=== PATIENT | female | born 1995 | race Caucasian/White ===

== ENCOUNTER 2016-10-23 19:37 | Emergency (ER) | payer SELFPAY ==
[2016-10-23 20:11] VITALS: TEMP 97.2
[2016-10-23] MEDS ORDERED: FLUCONAZOLE 100 MG TAB PO ONE (20:40)
[2016-10-23] MEDS ORDERED: CETIRIZINE HCL 10 MG TAB PO ONE (20:41)
--- NOTE | 2016-10-23 20:44 | ED.PDOC ---
History of Present Illness - General Chief Complaint: Skin/Abrasion/Tear Time Seen by Provider: 10/23/16 20:38 Source: patient Exam Limitations: no limitations - History of Present Illness Initial Comments: the patient is a 21-year-old female presenting to the emergency room secondary to skin lesions. She has had a large erythematous lesion to her left antecubital fossa for the last 7 months. Additionally over the last 2-3 months she has developed several coin-sized lesions in various places. One is on the breast. One is on the medial thigh. A couple or on the abdomen. They're all pruritic. Most of the smaller ones look significantly lax psoriasis. She has attempted multiple antifungal's on the original lesion without any relief. She has not been taking antihistamines or steroids. No oral lesions. There've been no blisters. Timing/Duration: constant Severity: moderate Improving Factors: nothing Worsening Factors: nothing Associated Symptoms: denies symptoms Allergies/Adverse Reactions: Allergies Meperidine [From Demerol HCl] Allergy (Verified 09/03/16 21:59) bandaid Allergy (Mild, Uncoded 02/07/16 21:19) Home Medications: Ambulatory Orders predniSONE [Prednisone] 20 mg PO DAILY #5 tab 10/23/16 Review of Systems - Review of Systems Constitutional: States: no symptoms reported EENTM: States: no symptoms reported Respiratory: States: no symptoms reported Cardiology: States: no symptoms reported Gastrointestinal/Abdominal: States: no symptoms reported Genitourinary: States: no symptoms reported Musculoskeletal: States: no symptoms reported Skin: States: see HPI Neurological: States: no symptoms reported All other Systems: No Change from Baseline Past Medical History (General) - Patient Medical History Hx Seizures: No Hx Stroke: No Hx Dementia: No Hx Asthma: No Hx of COPD: No Hx Cardiac Disorders: No Hx Congestive Heart Failure: No Hx Pacemaker: No Hx Hypertension: No Hx Thyroid Disease: No Hx Diabetes: No Hx Gastroesophageal Reflux: Yes Hx Renal Disease: No Hx Cancer: No Hx of HIV: No Hx Hepatitis C: No Hx MRSA: No Surgical History: other - Vaccination History Hx Tetanus, Diphtheria Vaccination: Yes Hx Influenza Vaccination: Yes Hx Pneumococcal Vaccination: No Immunizations Up to Date: Yes - Social History Hx Tobacco Use: Yes Hx Chewing Tobacco Use: No Hx Alcohol Use: Yes Hx Substance Use: No Hx Substance Use Treatment: No Hx Depression: No Hx Physical Abuse: No Hx Emotional Abuse: No Hx Suspected Abuse: No - Female History Patient is a Female of Child Bearing Age (10 -59 yrs old): Yes Hx Last Menstrual Period: 04/04/15 Patient : No Expected Date of Delivery:: 06/14/16 Hx Gestational Age: 36 Family Medical History - Family History Mother Family History: No Known Living Status: Still Living Hx Family Asthma: Yes Hx Family Congestive Heart Failure: No Hx Family Hypertension: Yes Hx Family Stroke: No Hx Cardiac Disease: Yes Hx Family Diabetes: No Hx Family Cancer: No Physical Exam - Physical Exam General Appearance: Alert, Comfortable, No apparent distress Eye Exam: bilateral normal Ears, Nose, Throat: normal ENT inspection, normal pharynx Neck: non-tender, full range of motion, supple Respiratory: chest non-tender, lungs clear, normal breath sounds, no respiratory distress, no accessory muscle use Cardiovascular/Chest: normal peripheral pulses, no edema Peripheral Pulses: radial,right: 2+, radial,left: 2+ Rectal Exam: deferred Back Exam: normal inspection Extremity: normal range of motion, non-tender, no pedal edema, no calf tenderness, normal capillary refill Neurologic: alert, normal mood/affect, oriented x 3 Skin Exam: rash - see history of present illness Comments: Vital Signs - 24 hr 10/23/16 20:07 Temperature 97.2 F L Pulse Rate [ 96 H Right Radial] Respiratory 18 Rate Blood Pressure 130/85 [Right Arm] O2 Sat by Pulse 95 Oximetry Progress - Progress Progress: 10/23/16 20:44 the patient is a 21-year-old female presenting with multiple skin lesions, some of which have been present for 7 months. She has tried multiple antifungals without relief. While this may be a fungal problem this seems unlikely at this point simply due to the duration of symptoms. She was given 1 tablet of Diflucan. More likely this seems like a form of psoriasis versus atopic dermatitis. The patient will be placed on prednisone daily 20 mg for 5 days. I want her to take cetirizine 10 mg daily as well for one month. She needs to use a hydrating soap such as Dove soap at night and she can also use topical Cetaphil cream twice daily to help reduce dry skin and therefore likely reduce lesion formation. She needs to keep well-hydrated. Return to the emergency room for any acute worsening. Take the prednisone in the morning. Take the cetirizine at night. Departure - Departure Clinical Impression: Atopic dermatitis Qualifiers: Atopic dermatitis type: flexural Qualifier Code: (L20.89) Other atopic dermatitis Disposition: Discharge to Home or Self Care Condition: Fair Departure Forms: ED Discharge - Pt. Copy, Patient Portal Self Enrollment Instructions: DI for Atopic Dermatitis - Adult Diet: regular diet Activity: increase activity as tolerated Referrals: Loy Soto MD [Primary Care Provider] - 1-2 Weeks Prescriptions: predniSONE [Prednisone] 20 mg PO DAILY #5 tab Home Medications: Ambulatory Orders predniSONE [Prednisone] 20 mg PO DAILY #5 tab 10/23/16 Additional Instructions: the patient is a 21-year-old female presenting with multiple skin lesions, some of which have been present for 7 months. She has tried multiple antifungals without relief. While this may be a fungal problem this seems unlikely at this point simply due to the duration of symptoms. She was given 1 tablet of Diflucan. More likely this seems like a form of psoriasis versus atopic dermatitis. The patient will be placed on prednisone daily 20 mg for 5 days. I want her to take cetirizine 10 mg daily as well for one month. She needs to use a hydrating soap such as Dove soap at night and she can also use topical Cetaphil cream twice daily to help reduce dry skin and therefore likely reduce lesion formation. She needs to keep well-hydrated. Return to the emergency room for any acute worsening. Take the prednisone in the morning. Take the cetirizine at night.
[2016-10-23 21:08] VITALS: BP 131/77; O2SAT 98
== END 2016-10-23 21:08 | disposition home or self-care (01) ==
LOC: ER 19:37
DX: L20.89 Other atopic dermatitis (principal); Z87.891 Personal history of nicotine dependence

== ENCOUNTER 2017-05-09 19:27 | Emergency (ER) | payer SELFPAY ==
[2017-05-09 19:48] VITALS: BP 157/81; TEMP 97.8; O2SAT 98
--- NOTE | 2017-05-09 19:51 | ED.PDOC ---
History of Present Illness - General Chief Complaint: ENT Problem Stated Complaint: ear pain Time Seen by Provider: 05/09/17 19:43 Source: patient Exam Limitations: no limitations - History of Present Illness Initial Comments: Patient has had a runny nose and sinus pain for one week. She also has an intermittent cough occasionally productive of clear sputum. For the past three days, her right ear has been hurting. It is throbbing in nature. She denies sore throat. Sinus pain is frontal and maxillary. No sick contacts. No other complaints. Timing/Duration: 1 week Severity: moderate Improving Factors: nothing Worsening Factors: nothing Associated Symptoms: other - see HPI Allergies/Adverse Reactions: Allergies Meperidine [From Demerol HCl] Allergy (Verified 09/03/16 21:59) bandaid Allergy (Mild, Uncoded 02/07/16 21:19) Home Medications: Ambulatory Orders predniSONE [Prednisone] 20 mg PO DAILY #5 tab 10/23/16 Amoxicillin & Pot Clavulanate [Augmentin] 875 mg PO BID #19 tab 05/09/17 Review of Systems - Review of Systems Constitutional: States: see HPI EENTM: States: see HPI Respiratory: States: see HPI Cardiology: States: no symptoms reported Gastrointestinal/Abdominal: States: no symptoms reported Genitourinary: States: no symptoms reported Musculoskeletal: States: no symptoms reported Skin: States: no symptoms reported Neurological: States: no symptoms reported Endocrine: States: no symptoms reported Hematologic/Lymphatic: States: no symptoms reported Past Medical History (General) - Patient Medical History Hx Seizures: No Hx Stroke: No Hx Dementia: No Hx Asthma: No Hx of COPD: No Hx Cardiac Disorders: No Hx Congestive Heart Failure: No Hx Pacemaker: No Hx Hypertension: No Hx Thyroid Disease: No Hx Diabetes: No Hx Gastroesophageal Reflux: Yes Hx Renal Disease: No Hx Cancer: No Hx of HIV: No Hx Hepatitis C: No Hx MRSA: No - Vaccination History Hx Tetanus, Diphtheria Vaccination: Yes Hx Influenza Vaccination: No Hx Pneumococcal Vaccination: No Immunizations Up to Date: Yes - Social History Hx Tobacco Use: Yes Hx Chewing Tobacco Use: No Hx Alcohol Use: No Hx Substance Use: No Hx Substance Use Treatment: No Hx Depression: No Hx Physical Abuse: No Hx Emotional Abuse: No Hx Suspected Abuse: No - Female History Patient is a Female of Child Bearing Age (10 -59 yrs old): Yes Hx Last Menstrual Period: 04/04/15 Patient : No Expected Date of Delivery:: 06/14/16 Hx Gestational Age: 36 Family Medical History - Family History Mother Family History: No Known Living Status: Still Living Hx Family Asthma: Yes Hx Family Congestive Heart Failure: No Hx Family Hypertension: Yes Hx Family Stroke: No Hx Cardiac Disease: Yes Hx Family Diabetes: No Hx Family Cancer: No Physical Exam - Physical Exam General Appearance: Alert Eye Exam: bilateral normal Ears, Nose, Throat: other - Right TM is bulging with serous fluid, left TM is clear, clear nasal exudate, non-injected sclera, OP clear, no LAD, frontal and maxillary sinuses are mildly TTP Neck: non-tender, full range of motion, supple, normal inspection Respiratory: other - Exp wheezing in right upper and middle lung boo. Cardiovascular/Chest: regular rate, rhythm Gastrointestinal/Abdominal: normal bowel sounds, non tender, soft Skin Exam: normal color Lymphatic: no adenopathy Departure - Departure Clinical Impression: Acute sinusitis Disposition: Discharge to Home or Self Care Condition: Good Departure Forms: ED Discharge - Pt. Copy, Patient Portal Self Enrollment Diet: resume usual diet Activity: increase activity as tolerated Referrals: Loy Soto MD [Primary Care Provider] - 1-2 Weeks Prescriptions: Amoxicillin & Pot Clavulanate [Augmentin] 875 mg PO BID #19 tab Home Medications: Ambulatory Orders predniSONE [Prednisone] 20 mg PO DAILY #5 tab 10/23/16 Amoxicillin & Pot Clavulanate [Augmentin] 875 mg PO BID #19 tab 05/09/17 Additional Instructions: Take medication as prescribed. Over the counter cough and cold medications as directed. Increase fluids. Return to your regular doctor if symptoms have not resolved in two weeks.
[2017-05-09] MEDS ORDERED: AMOXICILLIN & POT CLAVULANATE 875 MG TAB PO ONE (19:55)
== END 2017-05-09 20:05 | disposition home or self-care (01) ==
LOC: ER 19:27
DX: J01.90 Acute sinusitis, unspecified (principal); K21.9 Gastro-esophageal reflux disease without esophagitis; Z88.8 Allergy status to other drugs, medicaments and biological substances

== ENCOUNTER 2018-02-20 00:38 | Emergency (ER) | payer SELFPAY ==
[2018-02-20] MEDS ORDERED: traMADol HCL 50 MG TAB PO ONE (01:09)
[2018-02-20] MEDS ORDERED: CEPHALEXIN MONOHYDRATE 500 MG CAP PO ONE (01:09)
--- NOTE | 2018-02-20 01:12 | ED.PDOC ---
History of Present Illness - General Time Seen by Provider: 02/20/18 01:09 Source: patient Exam Limitations: no limitations - History of Present Illness Initial Comments: the patient is 22 yo cf presenting due to dental pain of right upper posterior molar for 4 yrs worse over the last 2 days. no fever or maxillary sinus pain. no abscesss obvious. Timing/Duration: unsure Severity: moderate Improving Factors: nothing Worsening Factors: nothing Associated Symptoms: denies symptoms Allergies/Adverse Reactions: Allergies Meperidine [From Demerol HCl] Allergy (Verified 09/03/16 21:59) bandaid Allergy (Mild, Uncoded 02/07/16 21:19) Home Medications: Ambulatory Orders predniSONE [Prednisone] 20 mg PO DAILY #5 tab 10/23/16 Amoxicillin & Pot Clavulanate [Augmentin] 875 mg PO BID #19 tab 05/09/17 Cephalexin Monohydrate [Keflex] 500 mg PO Q8H #30 cap 02/20/18 Tramadol HCl [Ultram] 50 mg PO Q8HR #30 tab 02/20/18 Review of Systems - Review of Systems Constitutional: States: no symptoms reported EENTM: States: see HPI Respiratory: States: no symptoms reported Cardiology: States: no symptoms reported Gastrointestinal/Abdominal: States: no symptoms reported Genitourinary: States: no symptoms reported Musculoskeletal: States: no symptoms reported Skin: States: no symptoms reported Neurological: States: no symptoms reported Endocrine: States: no symptoms reported All other Systems: No Change from Baseline Past Medical History (General) - Patient Medical History Hx Seizures: No Hx Stroke: No Hx Dementia: No Hx Asthma: No Hx of COPD: No Hx Cardiac Disorders: No Hx Congestive Heart Failure: No Hx Pacemaker: No Hx Hypertension: No Hx Thyroid Disease: No Hx Diabetes: No Hx Gastroesophageal Reflux: Yes Hx Renal Disease: No Hx Cancer: No Hx of HIV: No Hx Hepatitis C: No Hx MRSA: No - Vaccination History Hx Tetanus, Diphtheria Vaccination: Yes Hx Influenza Vaccination: No Hx Pneumococcal Vaccination: No - Social History Hx Tobacco Use: Yes Hx Chewing Tobacco Use: No Hx Alcohol Use: No Hx Substance Use: No Hx Substance Use Treatment: No Hx Depression: No Hx Physical Abuse: No Hx Emotional Abuse: No Hx Suspected Abuse: No - Female History Hx Last Menstrual Period: 04/04/15 Patient : No Expected Date of Delivery:: 06/14/16 Hx Gestational Age: 36 Family Medical History - Family History Mother Family History: No Known Living Status: Still Living Hx Family Asthma: Yes Hx Family Congestive Heart Failure: No Hx Family Hypertension: Yes Hx Family Stroke: No Hx Cardiac Disease: Yes Hx Family Diabetes: No Hx Family Cancer: No Physical Exam - Physical Exam General Appearance: Alert, Comfortable, No apparent distress Eye Exam: bilateral normal Ears, Nose, Throat: hearing grossly normal, other - see hpi Neck: full range of motion, supple Respiratory: no respiratory distress, no accessory muscle use Cardiovascular/Chest: normal peripheral pulses, no edema Peripheral Pulses: radial,right: 2+, radial,left: 2+ Rectal Exam: deferred Extremity: normal range of motion, no pedal edema, normal capillary refill 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 placing on keflex and tramadol. can use ibuprofen as needed and clove oil once as well. needs to see a dentist. er warnings. Departure - Departure Clinical Impression: Pain due to dental caries Disposition: Discharge to Home or Self Care Condition: Fair Instructions: DI for Dental Pain Diet: regular diet Activity: increase activity as tolerated Prescriptions: Tramadol HCl [Ultram] 50 mg PO Q8HR #30 tab Cephalexin Monohydrate [Keflex] 500 mg PO Q8H #30 cap Home Medications: Ambulatory Orders predniSONE [Prednisone] 20 mg PO DAILY #5 tab 10/23/16 Amoxicillin & Pot Clavulanate [Augmentin] 875 mg PO BID #19 tab 05/09/17 Cephalexin Monohydrate [Keflex] 500 mg PO Q8H #30 cap 02/20/18 Tramadol HCl [Ultram] 50 mg PO Q8HR #30 tab 02/20/18 Additional Instructions: patient is a 22 year old female presenting with dental pain from a long fractured tooth with likely superimposed infection. placing on keflex and tramadol. can use ibuprofen as needed and clove oil once as well. needs to see a dentist. er warnings.
[2018-02-20 01:41] VITALS: BP 128/76; TEMP 98; O2SAT 99
== END 2018-02-20 01:40 | disposition home or self-care (01) ==
LOC: ER 00:38
DX: K02.9 Dental caries, unspecified (principal)

== ENCOUNTER 2018-04-02 21:09 | Emergency (ER) | payer SELFPAY ==
[2018-04-02 21:22] VITALS: BP 157/95; TEMP 98.3; O2SAT 100
--- NOTE | 2018-04-02 21:36 | ED.PDOC ---
History of Present Illness - General Chief Complaint: Dental/Mouth Stated Complaint: dental, facial pain Time Seen by Provider: 04/02/18 21:26 Source: patient Exam Limitations: no limitations - History of Present Illness Initial Comments: Rosio Valenzuela 22 y/o female came to ER with right upper molar dental pain for the last 3 days;No fever; no drooling;no dysphagia;no facial swelling/pain Timing/Duration: gradual, other - see hpi Severity: moderate EENT Location: dental Prearrival Treatment: no prearrival treatment Presenting Symptoms: toothache Improving Factors: rest Worsening Factors: eating Associated Symptoms: denies symptoms Allergies/Adverse Reactions: Allergies Meperidine [From Demerol HCl] Allergy (Verified 09/03/16 21:59) bandaid Allergy (Mild, Uncoded 02/07/16 21:19) Home Medications: Ambulatory Orders predniSONE [Prednisone] 20 mg PO DAILY #5 tab 10/23/16 Amoxicillin & Pot Clavulanate [Augmentin] 875 mg PO BID #19 tab 05/09/17 Cephalexin Monohydrate [Keflex] 500 mg PO Q8H #30 cap 02/20/18 Tramadol HCl [Ultram] 50 mg PO Q8HR #30 tab 02/20/18 Clindamycin HCl 150 mg PO TID 10 Days #30 cap 04/02/18 Tramadol HCl 50 mg PO TID PRN #10 tab 04/02/18 Review of Systems - Review of Systems Constitutional: States: no symptoms reported EENTM: States: see HPI Respiratory: States: no symptoms reported Cardiology: States: no symptoms reported Gastrointestinal/Abdominal: States: no symptoms reported All other Systems: Reviewed and Negative, No Change from Baseline Past Medical History (General) - Patient Medical History Hx Seizures: No Hx Stroke: No Hx Dementia: No Hx Asthma: No Hx of COPD: No Hx Cardiac Disorders: No Hx Congestive Heart Failure: No Hx Pacemaker: No Hx Hypertension: No Hx Thyroid Disease: No Hx Diabetes: No Hx Gastroesophageal Reflux: Yes Hx Renal Disease: No Hx Cancer: No Hx of HIV: No Hx Hepatitis C: No Hx MRSA: No Surgical History: other - tubal ligation - Vaccination History Hx Tetanus, Diphtheria Vaccination: Yes Hx Influenza Vaccination: No Hx Pneumococcal Vaccination: No - Social History Hx Tobacco Use: Yes Hx Chewing Tobacco Use: No Hx Alcohol Use: No Hx Substance Use: No Hx Substance Use Treatment: No Hx Depression: No Hx Physical Abuse: No Hx Emotional Abuse: No Hx Suspected Abuse: No - Female History Hx Last Menstrual Period: 03/05/18 Patient : No Family Medical History - Family History Mother Family History: No Known Living Status: Still Living Hx Family Asthma: Yes Hx Family Congestive Heart Failure: No Hx Family Hypertension: Yes Hx Family Stroke: No Hx Cardiac Disease: Yes Hx Family Diabetes: No Hx Family Cancer: No Physical Exam - Physical Exam General Appearance: Alert, No apparent distress Eye Exam: bilateral normal Ear Exam: bilateral ear: auricle normal, canal normal, TM normal Nasal Exam: normal inspection Throat Exam: pharynx normal, other - multiple eroded teeth motly upper molars with localized gum swelling Neck: non-tender, full range of motion, supple, normal inspection, trachea midline Cardiovascular/Respiratory: regular rate, rhythm, no M/R/G, normal peripheral pulses, normal breath sounds Abdominal Exam: non-tender, no organomegaly Neurologic: alert, oriented x 3 Skin Exam: normal color, warm/dry Progress - Progress Progress: 04/02/18 21:41 Vital Signs - 8 hr 04/02/18 21:21 Temperature 98.3 F Pulse Rate [ 56 L monitor] Respiratory 18 Rate Blood Pressure 157/95 [Left Arm] O2 Sat by Pulse 100 Oximetry Departure - Departure Clinical Impression: Dental caries Time of Disposition: 21:43 Disposition: Discharge to Home or Self Care Condition: Good Departure Forms: ED Discharge - Pt. Copy, Patient Portal Self Enrollment Instructions: DI for Dental Pain, Tooth Decay, Adult Diet: other - SOFT DIET ONLY UNTIL BETTER Prescriptions: Clindamycin HCl 150 mg PO TID 10 Days #30 cap Tramadol HCl 50 mg PO TID PRN #10 tab PRN Reason: Pain Home Medications: Ambulatory Orders predniSONE [Prednisone] 20 mg PO DAILY #5 tab 10/23/16 Amoxicillin & Pot Clavulanate [Augmentin] 875 mg PO BID #19 tab 05/09/17 Cephalexin Monohydrate [Keflex] 500 mg PO Q8H #30 cap 02/20/18 Tramadol HCl [Ultram] 50 mg PO Q8HR #30 tab 02/20/18 Clindamycin HCl 150 mg PO TID 10 Days #30 cap 04/02/18 Tramadol HCl 50 mg PO TID PRN #10 tab 04/02/18 Additional Instructions: NEED TO MAKE APPOINTMENT WITH DENTIST NIALL- [facility]-[address] [place] [address] phone # [phone] OR/Dentist of choice
[2018-04-02] MEDS ORDERED: CLINDAMYCIN HCL CAP 150 MG CAP PO ONE (21:41)
[2018-04-02] MEDS ORDERED: traMADol HCL 50 MG (ER DISP) # 6 TABS PO ONE (21:42)
[2018-04-02] MEDS ORDERED: CLINDAMYCIN PHOSPHATE 150 MG/ML VIAL IM ONE (21:42)
== END 2018-04-02 22:01 | disposition home or self-care (01) ==
LOC: ER 21:09
DX: K02.9 Dental caries, unspecified (principal); K21.9 Gastro-esophageal reflux disease without esophagitis; Z87.891 Personal history of nicotine dependence

== ENCOUNTER 2018-12-29 07:47 | Emergency (ER) | payer OTHER, SELFPAY ==
[2018-12-29] MEDS ORDERED: levoFLOXacin 500 MG TAB PO ONE (08:05)
--- NOTE | 2018-12-29 08:06 | ED.PDOC ---
History of Present Illness - General Chief Complaint: ENT Problem Time Seen by Provider: 12/29/18 08:03 Source: patient Exam Limitations: no limitations - History of Present Illness Initial Comments: the patient is a 23-year-old female presenting with an acute right otitis media. She does have a bulging tympanic membrane and there are some bullae on the membrane. The tympanic membrane is dark red and opaque. Left is normal. She has recently had a respiratory tract infection. Patient is pleasant and cooperative and in no acute distress. Timing/Duration: 24 hours Severity: moderate Improving Factors: nothing Worsening Factors: nothing Associated Symptoms: cough, malaise Allergies/Adverse Reactions: Allergies Meperidine [From Demerol HCl] Allergy (Verified 09/03/16 21:59) bandaid Allergy (Mild, Uncoded 02/07/16 21:19) Home Medications: Ambulatory Orders levoFLOXacin [Levaquin] 500 mg PO DAILY #6 tab 12/29/18 Review of Systems - Review of Systems Constitutional: States: malaise EENTM: States: ear pain, nose congestion, throat pain Respiratory: States: cough Cardiology: States: no symptoms reported Gastrointestinal/Abdominal: States: no symptoms reported Genitourinary: States: no symptoms reported Musculoskeletal: States: no symptoms reported Skin: States: no symptoms reported Neurological: States: no symptoms reported Endocrine: States: no symptoms reported All other Systems: No Change from Baseline Past Medical History (General) - Patient Medical History Hx Seizures: No Hx Stroke: No Hx Dementia: No Hx Asthma: No Hx of COPD: No Hx Cardiac Disorders: No Hx Congestive Heart Failure: No Hx Pacemaker: No Hx Hypertension: No Hx Thyroid Disease: No Hx Diabetes: No Hx Gastroesophageal Reflux: Yes Hx Renal Disease: No Hx Cancer: No Hx of HIV: No Hx Hepatitis C: No Hx MRSA: No - Vaccination History Hx Tetanus, Diphtheria Vaccination: Yes Hx Influenza Vaccination: No Hx Pneumococcal Vaccination: No - Social History Hx Tobacco Use: Yes Hx Chewing Tobacco Use: No Hx Alcohol Use: No Hx Substance Use: No Hx Substance Use Treatment: No Hx Depression: No Hx Physical Abuse: No Hx Emotional Abuse: No Hx Suspected Abuse: No - Female History Hx Last Menstrual Period: 03/05/18 Patient : No Expected Date of Delivery:: 06/14/16 Hx Gestational Age: 36 Family Medical History - Family History Mother Family History: No Known Living Status: Still Living Hx Family Asthma: Yes Hx Family Congestive Heart Failure: No Hx Family Hypertension: Yes Hx Family Stroke: No Hx Cardiac Disease: Yes Hx Family Diabetes: No Hx Family Cancer: No Physical Exam - Physical Exam General Appearance: Alert, Comfortable, No apparent distress Eye Exam: bilateral normal Ears, Nose, Throat: abnormal TM (R), nasal congestion Neck: full range of motion, supple Respiratory: no respiratory distress, no accessory muscle use Cardiovascular/Chest: normal peripheral pulses, no edema Peripheral Pulses: radial,right: 2+, radial,left: 2+ Rectal Exam: deferred 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 She'll be placed on Levaquin for 7 days. She is receiving her first dose now. She can additionally take Motrin or Aleve as needed every 8-12 hours to help reduce discomfort. She needs to keep herself well-hydrated. ER warnings were given. Departure - Departure Clinical Impression: Otitis media Qualifiers: Otitis media type: suppurative Chronicity: acute Laterality: right Recurrence: non-recurrent Spontaneous tympanic membrane rupture: without spontaneous rupture Qualified Code(s): H66.001 - Acute suppurative otitis media without spontaneous rupture of ear drum, right ear Disposition: Discharge to Home or Self Care Condition: Fair Departure Forms: ED Discharge - Pt. Copy, Patient Portal Self Enrollment Diet: regular diet Activity: increase activity as tolerated Prescriptions: levoFLOXacin [Levaquin] 500 mg PO DAILY #6 tab Home Medications: Ambulatory Orders levoFLOXacin [Levaquin] 500 mg PO DAILY #6 tab 12/29/18 Additional Instructions: the patient a 23-year-old female presenting to the emergency room with a right acute otitis media. She'll be placed on Levaquin for 7 days. She is receiving her first dose now. She can additionally take Motrin or Aleve as needed every 8-12 hours to help reduce discomfort. She needs to keep herself well-hydrated. ER warnings were given.
[2018-12-29 08:14] VITALS: TEMP 97.8
[2018-12-29 08:17] VITALS: BP 127/93; O2SAT 97
== END 2018-12-29 08:17 | disposition home or self-care (01) ==
LOC: ER 07:47
DX: H66.001 Acute suppurative otitis media without spontaneous rupture of ear drum, right ear (principal); K21.9 Gastro-esophageal reflux disease without esophagitis; Z87.891 Personal history of nicotine dependence; Z88.8 Allergy status to other drugs, medicaments and biological substances

== ENCOUNTER 2019-03-30 09:11 | Emergency (ER) | payer OTHER ==
--- NOTE | 2019-03-30 09:37 | ED.PDOC ---
History of Present Illness - General Chief Complaint: Headache Stated Complaint: sudden RUIZ and nausea Time Seen by Provider: 03/30/19 09:30 Source: RN notes reviewed, EMS notes reviewed Exam Limitations: no limitations Additional Information: 23 YEAR OLD HERE FOR HEADACHE SUDDEN ONSET AT WORK THIS MORNING AFTER SHE OUT IN THE [place]IGHT PAIN IS SHARP AND OVER FRONTAL SIDE ASSOCIATED WITH NAUSEA SHE HAS NO HISTORY OF CHRONIC HEADACHES SHE SLEPT GOOD LAST NIGHT AND HAS NO FEVER CHILLS NO NAUSEA OR VOMITING - History of Present Illness Timing/Duration: 1/2 hour Severity: moderate Improving Factors: nothing Worsening Factors: nothing Associated Symptoms: denies symptoms Allergies/Adverse Reactions: Allergies Meperidine [From Demerol HCl] Allergy (Verified 09/03/16 21:59) bandaid Allergy (Mild, Uncoded 02/07/16 21:19) Review of Systems - Review of Systems Constitutional: States: no symptoms reported EENTM: States: no symptoms reported Respiratory: States: no symptoms reported Cardiology: States: no symptoms reported Gastrointestinal/Abdominal: States: no symptoms reported Genitourinary: States: no symptoms reported Musculoskeletal: States: no symptoms reported Skin: States: no symptoms reported Neurological: States: no symptoms reported Endocrine: States: no symptoms reported Hematologic/Lymphatic: States: no symptoms reported Past Medical History (General) - Patient Medical History Hx Seizures: No Hx Stroke: No Hx Dementia: No Hx Asthma: No Hx of COPD: No Hx Cardiac Disorders: No Hx Congestive Heart Failure: No Hx Pacemaker: No Hx Hypertension: No Hx Thyroid Disease: No Hx Diabetes: No Hx Gastroesophageal Reflux: Yes Hx Renal Disease: No Hx Cancer: No Hx of HIV: No Hx Hepatitis C: No Hx MRSA: No Surgical History: other - Vaccination History Hx Tetanus, Diphtheria Vaccination: Yes Hx Influenza Vaccination: No Hx Pneumococcal Vaccination: No - Social History Hx Tobacco Use: Yes Hx Chewing Tobacco Use: No Hx Alcohol Use: No Hx Substance Use: No Hx Substance Use Treatment: No Hx Depression: No Hx Physical Abuse: No Hx Emotional Abuse: No Hx Suspected Abuse: No - Female History Hx Last Menstrual Period: 03/05/18 Patient : No Expected Date of Delivery:: 06/14/16 Hx Gestational Age: 36 Family Medical History - Family History Mother Family History: No Known Living Status: Still Living Hx Family Asthma: Yes Hx Family Congestive Heart Failure: No Hx Family Hypertension: Yes Hx Family Stroke: No Hx Cardiac Disease: Yes Hx Family Diabetes: No Hx Family Cancer: No Physical Exam - Physical Exam General Appearance: Alert, Comfortable Ears, Nose, Throat: hearing grossly normal, normal ENT inspection, normal pharynx Neck: non-tender, full range of motion, supple Respiratory: chest non-tender, lungs clear, normal breath sounds, no respiratory distress, no accessory muscle use Cardiovascular/Chest: normal peripheral pulses, regular rate, rhythm, no edema, no gallop, no JVD, no murmur Gastrointestinal/Abdominal: normal bowel sounds, non tender, soft, no organomegaly, no pulsatile mass, abnormal bowel sounds Back Exam: normal inspection Extremity: normal range of motion, non-tender, normal inspection 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 Copy, Patient Portal Self Enrollment Instructions: DI for Headache Additional Instructions: DO NOT SMOKE PLENTY OF WATER FOLLOW UP WITH YOUR MD
[2019-03-30] MEDS ORDERED: KETOROLAC TROMETHAMINE INJ 60 MG/2 ML VIAL IM ONE (09:39)
[2019-03-30] MEDS ORDERED: PROMETHAZINE HCL INJ 25 MG/ML VIAL IM ONE (09:39)
[2019-03-30 11:11] VITALS: BP 131/95; TEMP 97.9; O2SAT 94
== END 2019-03-30 10:58 | disposition home or self-care (01) ==
LOC: ER 09:11
DX: R51 Headache (principal); R11.0 Nausea; K21.9 Gastro-esophageal reflux disease without esophagitis; Z87.891 Personal history of nicotine dependence; Z88.8 Allergy status to other drugs, medicaments and biological substances
CPT/HCPCS: J1885; J2550

== ENCOUNTER 2020-05-10 21:22 | Emergency (ER) | payer OTHER ==
[2020-05-10 21:46] VITALS: O2SAT 98
--- NOTE | 2020-05-10 22:18 | ED.PDOC ---
History of Present Illness - General Chief Complaint: Headache Stated Complaint: headache Time Seen by Provider: 05/10/20 22:17 Source: patient - History of Present Illness Initial Comments: 24-year-old female with past medical history of migraines who presents to the ED with chief complaint of headache following closed head injury 1 day ago. Patient reports yesterday morning she was going to get into her vehicle when she slipped and fell backwards and struck the back of her head against the car door frame. Denies any LOC. Reports constant headache since then which is waxed and waned in severity. Reports worsening of headache while at work this afternoon to 8/10 severity. She states she came home and was tired so she slept for 4 hours with minimal improvement in headache so she came to the ED. Currently reports 5/10 severity headache, located to the forehead and maxillary regions, constant, no radiation, worse with bright lights and loud sounds, associated with nausea but no emesis, no medications taken for relief. Also reports that she has felt slightly confused with slowed mentation all day and has intermittent lightheadedness symptoms. Reports history of migraine headaches wh ich feel different and are usually located on the left side of the head. Reports this is not the worst headache of her life. On blood thinners. Denies any skull swelling or bruising or bleeding. Denies any neck pain or stiffness. Denies any other acute injuries. Allergies/Adverse Reactions: Allergies Meperidine [From Demerol HCl] Allergy (Verified 09/03/16 21:59) bandaid Allergy (Mild, Uncoded 02/07/16 21:19) Review of Systems - Review of Systems Review of Systems: 05/10/20 22:43 as per HPI All other Systems: Reviewed and Negative Past Medical History (General) - Patient Medical History Hx Seizures: No Hx Stroke: No Hx Dementia: No Hx Asthma: No Hx of COPD: No Hx Cardiac Disorders: No Hx Congestive Heart Failure: No Hx Pacemaker: No Hx Hypertension: No Hx Thyroid Disease: No Hx Diabetes: No Hx Gastroesophageal Reflux: Yes Hx Renal Disease: No Hx Cancer: No Hx of HIV: No Hx Hepatitis C: No Hx MRSA: No Surgical History: other - Vaccination History Hx Tetanus, Diphtheria Vaccination: Yes Hx Influenza Vaccination: Yes Hx Pneumococcal Vaccination: No Immunizations Up to Date: Yes - Social History Hx Tobacco Use: Yes Hx Chewing Tobacco Use: No Hx Alcohol Use: No Hx Substance Use: No Hx Substance Use Treatment: No Hx Depression: Yes - no longer on meds Feels Threatened In Home Enviroment: No Feels Threatened In a Relationship: No Hx Physical Abuse: No Hx Emotional Abuse: No Hx Suspected Abuse: No - Activities of Daily Living Hospice Agency (if applicable):: None - Female History Patient is a Female of Child Bearing Age (10 -59 yrs old): Yes - hx of tubal ligation Hx Last Menstrual Period: 03/05/18 Patient : No Expected Date of Delivery:: 06/14/16 Hx Gestational Age: 36 - Triage Comment ED Triage Comment: has irregular menses Family Medical History - Family History Mother Family History: No Known Living Status: Still Living Hx Family Asthma: Yes Hx Family Congestive Heart Failure: No Hx Family Hypertension: Yes Hx Family Stroke: No Hx Cardiac Disease: Yes Hx Family Diabetes: No Hx Family Cancer: No Physical Exam - Physical Exam General Appearance: Alert, Comfortable, No apparent distress Eye Exam: bilateral normal Ears, Nose, Throat: hearing grossly normal, normal ENT inspection, normal pharynx Neck: non-tender, full range of motion, supple, normal inspection Respiratory: lungs clear, normal breath sounds, no respiratory distress, no accessory muscle use Cardiovascular/Chest: normal peripheral pulses, regular rate, rhythm, no edema, no gallop, no JVD, no murmur Peripheral Pulses: radial,right: 2+, radial,left: 2+ Gastrointestinal/Abdominal: non tender, soft, no organomegaly Back Exam: normal inspection, no CVA tenderness, no vertebral tenderness Extremity: normal range of motion, non-tender, normal inspection, no pedal edema, no calf tenderness, normal capillary refill 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 Consider also: ICH, skull frx, c-spine frx, tension RUIZ, migraine, sinusitis, other -obtain CT head & c-spine imaging, bloodwork, UA, hcg -place PIV, 1 L NS bolus, Toradol 30 mg IV, Phenergan 12.5 mg IV 05/10/20 23:21 -CT head & c-spine show no acute processes. Pain much improved, pt remains stable. Labwork unremarkable. -Discussed all findings and dx of concussion RUIZ, closed head injury with shiloh fox. Advised rest, hydration, gradual return to normal activity. -Dc to home in good condition, return warnings discussed at length. F/u closely with PCP. Nilo Carlson MD Billing #[id number] 05/10/20 22:37 IV Care:Saline Lock per Protoc QSHIFT Telemetry .ONCE Sodium Chloride 0.9% (Flush) [Saline Flush Syringe] 10 ml IV PRN PRN 05/10/20 22:38 Head [CT] Stat Sodium Chloride 0.9% 1000ML [Ns 1000 ml] 1,000 ml IVS ONCE URINALYSIS Stat 05/10/20 22:45 Cervical Spine [CT] Stat 05/11/20 09:00 Pulse Ox Daily Laboratory Results - last 24 hr 05/10/20 05/10/20 05/10/20 22:57 22:57 22:57 WBC 9.1 RBC 4.74 Hgb 14.3 Hct 40.6 MCV 85.6 MCH 30.1 MCHC 35.2 RDW 13.4 Plt Count 270 MPV 7.6 Absolute Neuts (auto) 5.50 Absolute Lymphs (auto) 2.80 Absolute Monos (auto) 0.50 Absolute Eos (auto) 0.20 Absolute Basos (auto) 0.10 Neutrophils % 60.9 Lymphocytes % 30.3 Monocytes % 6.0 Eosinophils % 1.9 Basophils % 0.9 PT 10.0 INR 1.01 PTT (SP) 25.0 Sodium 136 Potassium 3.6 Chloride 104 Carbon Dioxide 25 Anion Gap 10.6 L BUN 11 Creatinine 0.77 BUN/Creatinine Ratio 14.3 Random Glucose 104 Serum Osmolality 271.7 L Calcium 8.6 Serum HCG, Qual 05/10/20 22:57 WBC RBC Hgb Hct MCV MCH MCHC RDW Plt Count MPV Absolute Neuts (auto) Absolute Lymphs (auto) Absolute Monos (auto) Absolute Eos (auto) Absolute Basos (auto) Neutrophils % Lymphocytes % Monocytes % Eosinophils % Basophils % PT INR PTT (SP) Sodium Potassium Chloride Carbon Dioxide Anion Gap BUN Creatinine BUN/Creatinine Ratio Random Glucose Serum Osmolality Calcium Serum HCG, Qual Negative Departure - Departure Clinical Impression: Concussion Qualifiers: Encounter type: initial encounter Loss of consciousness presence/duration: without LOC Qualified Code(s): S06.0X0A - Concussion without loss of consciousness, initial encounter Closed head injury Qualifiers: Encounter type: initial encounter Qualified Code(s): S09.90XA - Unspecified injury of head, initial encounter Time of Disposition: 23:16 Disposition: Discharge to Home or Self Care Condition: Fair Departure Forms: ED Discharge - Pt. Copy, ED Discharge - Work Release, Patient Portal Self Enrollment Instructions: DI for Headache, Concussion, Adult (DC), Closed Head Injury (DC) Diet: resume usual diet Activity: increase activity as tolerated Additional Instructions: Well-hydrated and gradually advance her diet and activity level as tolerated. Continue taking [id number] medication such as ibuprofen and Tylenol as needed for pain. Return to the ED if you develop any concerning symptoms such as rapidly worsening or severe headache, confusion, weakness, numbness, vision changes, etc. Follow-up with your primary care physician is recommended for repeat evaluation in 1 to 2 weeks or sooner as needed.
[2020-05-10] MEDS: SODIUM CHLORIDE 0.9% 1000ML 1,000 ML IVS ONE (22:45)
[2020-05-10] MEDS: PROMETHAZINE HCL INJ 12.5 MG in SODIUM CHLORIDE 0.9% 50ML 50 ML IVPB ONE (22:45)
[2020-05-10] MEDS: KETOROLAC TROMETHAMINE INJ 30 MG/ML VIAL IV ONE (22:46)
[2020-05-10] MEDS: SODIUM CHLORIDE 0.9% (FLUSH) 10 ML SYG IV PRN (22:58)
--- NOTE | 2020-05-10 23:26 | CT ---
EXAM: CT Head HISTORY: closed head injury 1 day ago, RUIZ, confusion, no LOC COMPARISON: None. TECHNIQUE: Head/brain axial images acquired without contrast. Coronal and sagittal reformats created. Exam performed according to departmental dose-optimization program which includes automated exposure control, adjustment of mA and/or kV according to patient size, and/or use of iterative reconstruction technique. FINDINGS: No midline shift, mass effect, intracranial hemorrhage, or hydrocephalus. Brain parenchyma unremarkable. Calcified atherosclerotic intracranial internal carotid and vertebral arteries. Paranasal sinuses and mastoid air cells clear. No skull fracture or significant skull lesion. IMPRESSION: 1. Calcified atherosclerotic intracranial internal carotid and vertebral arteries. 2. Otherwise, unremarkable CT head without contrast. Electronically signed by: Bradley Hewitt MD 05/10/2020 11:25 PM CDT
--- NOTE | 2020-05-10 23:31 | CT ---
EXAM: CT Cervical Spine HISTORY: Closed head injury back of head 1 day ago COMPARISON: None. TECHNIQUE: Cervical spine axial images acquired without contrast. Coronal and sagittal reformats created. Exam performed according to departmental dose-optimization program which includes automated exposure control, adjustment of mA and/or kV according to patient size, and/or use of iterative reconstruction technique. FINDINGS: Straightening of cervical vertebral bodies may be due to patient positioning or muscle spasm. No fracture or subluxation. No significant cervical disc height loss. No significant central canal or neuroforaminal stenosis. No paraspinal hematoma. IMPRESSION: Unremarkable CT cervical spine without contrast Electronically signed by: Bradley Hewitt MD 05/10/2020 11:29 PM CDT
[2020-05-10 23:47] VITALS: BP 130/81; TEMP 97.6
== END 2020-05-10 23:47 | disposition home or self-care (01) ==
LOC: ER 21:22
DX: S06.0X0A Concussion without loss of consciousness, initial encounter (principal); K21.9 Gastro-esophageal reflux disease without esophagitis; W01.198A Fall on same level from slipping, tripping and stumbling with subsequent striking against other object, initial encounter; Z87.891 Personal history of nicotine dependence; Z88.8 Allergy status to other drugs, medicaments and biological substances; Y92.810 Car as the place of occurrence of the external cause
CPT/HCPCS: 36415; 70450; 72125; 80048; 84703; 85025; 85610; 85730; A4216; J1885; J2550; J7030